=== PATIENT | male | born 1940 | race Caucasian/White ===

== ENCOUNTER 2016-04-12 08:08 | Day surgery (SDC) | payer OTHER ==
[2016-04-08 11:00] VITALS: BMI 26.6
[2016-04-12] MEDS ORDERED: PROPOFOL 20 ML ONE ×2 (09:08)
[2016-04-12 11:08] VITALS: TEMP 98.2
[2016-04-12 11:23] VITALS: BP 129/72; PULSE 78
== END 2016-04-12 11:26 | disposition home or self-care (01) ==
LOC: FASU-ENDO 08:08
PROVIDERS: ATTEND Internal Medicine Gastroenterology
PROC: 0DJD8ZZ Inspection of Lower Intestinal Tract, Via Natural or Artificial Opening Endoscopic (ICD-10-PCS; principal; 2016-04-12 10:30)
DX: Z86.010 Personal history of colon polyps (principal); K57.30 Diverticulosis of large intestine without perforation or abscess without bleeding